=== PATIENT | male | born 1950 | race Caucasian/White ===

== ENCOUNTER → 2023-01-22 10:29 | Outpatient (BNVA) | payer MEDICARE, MEDICAID, SELFPAY | PROVIDERS: PCP Family Medicine; Visit Provider Family Medicine | DX: N18.32 Chronic kidney disease, stage 3b; E78.2 Mixed hyperlipidemia; E11.9 Type 2 diabetes mellitus without complications | CPT/HCPCS: 80053; 80061; 81000; 83036; 85025 ==

== ENCOUNTER → 2023-05-30 09:30 | Outpatient (BNVA) | payer MEDICARE, MEDICAID, SELFPAY | PROVIDERS: PCP Family Medicine; Referring Provider Family Medicine; Visit Provider Family Medicine | DX: N18.30 Chronic kidney disease, stage 3 unspecified (principal); E11.9 Type 2 diabetes mellitus without complications | CPT/HCPCS: 80069; 82043; 82310; 83036; 83970; 85025 ==

== ENCOUNTER → 2023-09-27 11:41 | Outpatient (BNVA) | payer MEDICARE, MEDICAID, SELFPAY | PROVIDERS: PCP Family Medicine; Referring Provider Family Medicine; Visit Provider Family Medicine | DX: N18.32 Chronic kidney disease, stage 3b (principal) | CPT/HCPCS: 80069; 82043; 82310; 83970; 85025 ==

== ENCOUNTER → 2023-11-06 13:12 | Outpatient (BNVA) | payer MEDICARE, SELFPAY | PROVIDERS: PCP Family Medicine; Referring Provider Family Medicine; Visit Provider Family Medicine | DX: E11.9 Type 2 diabetes mellitus without complications (principal) | CPT/HCPCS: 83036 ==

== ENCOUNTER → 2024-01-04 10:19 | Outpatient (BNVA) | payer MEDICARE, SELFPAY | PROVIDERS: PCP Family Medicine; Referring Provider Family Medicine; Visit Provider Family Medicine | DX: M54.16 Radiculopathy, lumbar region (principal); M25.552 Pain in left hip; G89.29 Other chronic pain; M47.896 Other spondylosis, lumbar region; M16.12 Unilateral primary osteoarthritis, left hip; M11.252 Other chondrocalcinosis, left hip | CPT/HCPCS: 72100; 73502 ==

== ENCOUNTER → 2024-02-18 10:21 | Outpatient (BNVA) | payer MEDICARE, SELFPAY | PROVIDERS: PCP Family Medicine; Visit Provider Family Medicine | DX: N18.32 Chronic kidney disease, stage 3b (principal); R06.02 Shortness of breath; Z79.899 Other long term (current) drug therapy | CPT/HCPCS: 71046; 80053; 80061; 82310; 82570; 82977; 83970; 84156; 85025 ==

== ENCOUNTER → 2024-02-28 09:51 | Outpatient (BNVA) | payer MEDICARE, SELFPAY | PROVIDERS: PCP Family Medicine; Visit Provider Emergency Medicine | DX: J18.9 Pneumonia, unspecified organism (principal) | CPT/HCPCS: 71046 ==

== ENCOUNTER → 2024-03-03 15:27 | Outpatient (BNVA) | payer MEDICARE, SELFPAY | PROVIDERS: PCP Family Medicine; Visit Provider Family Medicine | DX: R06.02 Shortness of breath (principal); R10.11 Right upper quadrant pain; J90 Pleural effusion, not elsewhere classified | CPT/HCPCS: 71046 ==

== ENCOUNTER 2024-03-11 09:07 | Outpatient (CLI) | payer MEDICARE, SELFPAY ==
--- NOTE | 2024-03-11 10:00 | CTR_ITS ---
PROCEDURE INFORMATION: Exam: CT Chest Without Contrast; Diagnostic Exam date and time: 03/11/2024 9:23 AM Age: 73 years old Clinical indication: Abnormal findings; Abnormal radiologic exam of lung or chest; Additional info: R91.8 - other nonspecific abnormal finding of lung field, can not have contrast TECHNIQUE: Imaging protocol: Diagnostic computed tomography of the chest without contrast. Radiation optimization: All CT scans at this facility use at least one of these dose optimization techniques: automated exposure control; mA and/or kV adjustment per patient size (includes targeted exams where dose is matched to clinical indication); or iterative reconstruction. COMPARISON: CR XR chest 2V* [id number] 03/03/2024 3:42 PM RADIATION DOSE METRICS: Total DLP (mGy-cm): 383.34 FINDINGS: Lungs: There diffuse micro nodular calcifications within the lower lung zones more pronounced on the right likely chronic. There are superimposed changes of chronic bronchiolitis and bronchiectasis within the lower lung zones with scattered linear atelectasis more pronounced on the right. There is a 3 cm irregular shaped masslike density adjacent to the right basilar pleural effusion containing numerous punctate calcifications likely representing a chronic rounded atelectasis. There are diffuse upper lobe emphysematous changes. Pleural spaces: There is a small right pleural effusion with mild thickening of the pleural lining raising possibility of chronic exudative effusion. Left pleural surface is unremarkable. Heart: Heart is not enlarged. There are diffuse calcification of coronary arteries. No significant pericardial effusion. Lymph nodes: Unremarkable. No enlarged lymph nodes. Vasculature: Scattered atherosclerotic changes of the thoracic aorta. No aortic aneurysm. There is a stent graft within the abdominal aorta partially visualized. Bones/joints: There are no acute bony abnormalities or suspicious bone lesions detected. Soft tissues: Unremarkable. CT/CT chest wo con [id number] IMPRESSION: 1. Small right basilar pleural effusion possibly exudate in nature with adjacent rounded atelectasis right lung base probably chronic in nature. Recommend a repeat CT chest in 3 months for continued surveillance. 2. Diffuse micronodular calcifications lower lung zones likely longstanding with superimposed chronic airway changes more pronounced on the right. 3. COPD with diffuse upper lobe emphysematous changes. 4. Extensive calcification of coronary arteries. COMMENTS: The presence of pulmonary emphysema on CT is an independent risk factor for lung cancer. In the absence of a history or active diagnosis of lung cancer, it is recommended that this patient with emphysema be evaluated for enrollment in a low dose CT lung cancer screening program.
== END 2024-03-11 09:08 | disposition home or self-care (01) ==
LOC: RAD 09:08
PROVIDERS: PCP Family Medicine; Visit Provider Family Medicine
DX: J44.9 Chronic obstructive pulmonary disease, unspecified (principal); J43.9 Emphysema, unspecified; J98.11 Atelectasis; I25.84 Coronary atherosclerosis due to calcified coronary lesion
CPT/HCPCS: 71250

== ENCOUNTER → 2024-07-16 09:40 | Outpatient (BNVA) | payer MEDICARE, SELFPAY | PROVIDERS: PCP Family Medicine; Visit Provider Emergency Medicine | DX: J96.11 Chronic respiratory failure with hypoxia (principal); J90 Pleural effusion, not elsewhere classified; J98.11 Atelectasis | CPT/HCPCS: 71046 ==

== ENCOUNTER → 2024-08-20 13:17 | Outpatient (BNVA) | payer MEDICARE, SELFPAY | PROVIDERS: PCP Family Medicine; Visit Provider Family Medicine | DX: J44.9 Chronic obstructive pulmonary disease, unspecified (principal); E11.22 Type 2 diabetes mellitus with diabetic chronic kidney disease; N18.32 Chronic kidney disease, stage 3b; Z79.4 Long term (current) use of insulin; E11.9 Type 2 diabetes mellitus without complications | CPT/HCPCS: 80053; 83036; 85025 ==

== ENCOUNTER → 2025-01-07 14:12 | Outpatient (BNVA) | payer MEDICARE, SELFPAY | PROVIDERS: PCP Family Medicine; Visit Provider Family Medicine | DX: J96.10 Chronic respiratory failure, unspecified whether with hypoxia or hypercapnia (principal); E78.5 Hyperlipidemia, unspecified; E11.9 Type 2 diabetes mellitus without complications; E11.22 Type 2 diabetes mellitus with diabetic chronic kidney disease; N18.32 Chronic kidney disease, stage 3b; Z79.4 Long term (current) use of insulin; I10 Essential (primary) hypertension | CPT/HCPCS: 80053; 80061; 83036; 85025 ==

== ENCOUNTER → 2025-04-27 14:33 | Outpatient (BNVA) | payer MEDICARE, SELFPAY | PROVIDERS: PCP Family Medicine; Visit Provider Family Medicine | DX: J96.11 Chronic respiratory failure with hypoxia (principal) | CPT/HCPCS: 71046; 80048; 81000; 83036; 85025 ==